=== PATIENT | male | born 1960 | race Caucasian/White ===

== ENCOUNTER → 2020-05-18 | Outpatient (CLI) | payer MEDICARE ==
[~2020-05-18] MED LIST: BACTRIM DS TAB1 EACH PO; KEFLEX CAP 500500 MG PO; NAPROSYN EC 50500 MG PO; PERCOCET 5/325 T1 EA PO; PREDNISONE 50 M50 MG PO
== END ==
LOC: EMI 05-14 09:00
DX: R41.89 Other symptoms and signs involving cognitive functions and awareness (principal); G31.9 Degenerative disease of nervous system, unspecified
CPT/HCPCS: 70551

== ENCOUNTER → 2020-08-26 | Outpatient (CLI) | payer OTHER ==
[2020-08-26 12:49] LABS: BUN/CREATININE RATIO 21 (0-10)
[2020-08-27 08:14] LABS: TESTOSTERONE, SERUM 539 ng/dL (264-916)
[2020-08-27 10:14] LABS: CREATININE, URINE 58.4 mg/dL (Not Estab.)
== END ==
LOC: LAB 10:11
PROVIDERS: Emergency Medicine
DX: E10.65 Type 1 diabetes mellitus with hyperglycemia (principal)
CPT/HCPCS: 36415; 80053; 80061; 82043; 82570; 83036; 84403; 84439; 84443

== ENCOUNTER 2020-12-14 12:59 | Emergency (ER) | payer OTHER ==
[2020-12-14 14:33] LABS: HEMOGLOBIN 13.7 gm/dl (14.0-17.5); RED BLOOD COUNT 4.57 M/UL (4.20-5.50); WHITE BLOOD COUNT 14.6 K/UL (4.5-11.0)
[2020-12-14 14:47] LABS: BUN/CREATININE RATIO 10 (0-10)
== END 2020-12-14 16:55 | disposition left against medical advice (07) ==
LOC: ER1 12:59
PROVIDERS: Family Medicine
DX: S92.512B Displaced fracture of proximal phalanx of left lesser toe(s), initial encounter for open fracture (principal); L03.116 Cellulitis of left lower limb; E11.40 Type 2 diabetes mellitus with diabetic neuropathy, unspecified; Z20.822 Contact with and (suspected) exposure to COVID-19; W54.0XXA Bitten by dog, initial encounter
CPT/HCPCS: 73630; 80048; 85025; 86140; 96374; 99283; J2543; U0002

== ENCOUNTER → 2021-12-08 | Outpatient (CLI) | payer OTHER ==
[2021-12-08 12:12] LABS: HEMOGLOBIN 17.1 gm/dl (14.0-17.5); RED BLOOD COUNT 5.4 M/UL (4.20-5.50); WHITE BLOOD COUNT 9.6 K/UL (4.5-11.0)
[2021-12-08 12:34] LABS: BUN/CREATININE RATIO 10 (0-10)
[2021-12-09 10:14] LABS: CREATININE, URINE 161.4 mg/dL (Not Estab.)
== END ==
LOC: LAB 11:38
PROVIDERS: Emergency Medicine
DX: E11.621 Type 2 diabetes mellitus with foot ulcer (principal); R10.9 Unspecified abdominal pain; L97.509 Non-pressure chronic ulcer of other part of unspecified foot with unspecified severity
CPT/HCPCS: 36415; 80053; 80061; 82043; 82150; 82570; 83036; 83690; 84439; 84443; 85025; 85652; 86140